=== PATIENT | female | born 1985 | race African-American/Black ===

== ENCOUNTER 2017-02-22 18:30 | Day surgery (SDC) | payer OTHER ==
[2017-02-22 19:26] VITALS: BP 124/86; TEMP 99.4; BMI 34.8
--- NOTE | 2017-02-22 21:18 | CON ---
DATE OF CONSULTATION: 02/22/2017 CHIEF COMPLAINT: Elevated blood pressures. PRIMARY PRESCHOOL ASSISTANT TEACHER: Dr. Grisel Sandoval. HISTORY OF PRESENT ILLNESS: The patient is a 31-year-old G4, P1 female with an intrauterine pregnan cy at 36 weeks and 4 days, who has a history of preeclampsia with previous . The patient r eports that she had taken her blood pressure at home and was noted to be in the 140 systolic and pro ceeded to go to a local pharmacy to repeat her blood pressure where her systolic pressures were in t he 150s after consulting with her primary care team. She was advised to come for evaluation here at the hospital. The patient denies any headaches, any shortness of breath, nausea, vomiting, any oth er complications with this thus far. She denies any contractions. PAST MEDICAL HISTORY: Noncontributory. PAST SURGICAL HISTORY: Noncontributory. ALLERGIES: No known drug allergies. MEDICATIONS: She is on iron and vitamins. OBSTETRIC HISTORY: She has had 1 spontaneous , 1 elective and 1 term delivery. OB LABS: RPR is nonreactive. Hepatitis B surface antigen is nonreactive, HIV is nonreactive. She is rubella immune, and gonorrhea and chlamydia are negative. Her one-hour Glucola was 114. Type an d screen is O positive and her GBS is negative. REVIEW OF SYSTEMS: Patient denies any recent illness, fever, fall, headache, chest pain, shortness of breath, any nausea, vomiting, diarrhea, constipation, any new rashes, hip problems, knee problems , muscle weakness, any vaginal bleeding, leakage of fluid, uterine contractions, any urinary urgency or frequency. PHYSICAL EXAMINATION: VITAL SIGNS: Blood pressures have ranged from 124-131 systolic to 83-88 diastolic. Over the course of 45 minutes, pulse has been in the 100s-110s, respiratory rate is 16, temperature 99.4. GENERAL: She appears to be in no acute distress. She is alert and oriented, and cooperative and pl easant to interact with. HEENT: Normocephalic, atraumatic. LUNGS: Clear to auscultation bilaterally. HEART: Regular rate and rhythm. ABDOMEN: Soft, gravid, nontender. EXTREMITIES: Nontender, nonedematous. heart tracing was performed for approximately 30 minut for evaluation. Baseline was noted to be in the 130s with moderate long-term variabili ty, positive accelerations, no decelerations. Irritability is noted on the monitor. ASSESSMENT AND PLAN: The patient is a 31-year-old G4, P1 female with an intrauterine at 3 6 weeks and 4 days, presenting with concerns for elevated blood pressures. We have not been able to reproduce elevated pressures here at the hospital at this time. She is at increased risk for pregn sathish related to hypertension given her previous history; however, no evidence that this is occurring at this time. The patient does have an appointment on with her primary OB, which she has been encouraged to keep. Term precautions have been given.
== END 2017-02-22 20:05 | disposition home or self-care (01) ==
LOC: L&D/OP 18:30
PROVIDERS: ATTEND Family Medicine
DX: O99.89 Other specified diseases and conditions complicating pregnancy, childbirth and the puerperium (principal); R03.0 Elevated blood-pressure reading, without diagnosis of hypertension; Z79.899 Other long term (current) drug therapy; Z3A.36 36 weeks gestation of pregnancy; Z87.59 Personal history of other complications of pregnancy, childbirth and the puerperium; Z87.891 Personal history of nicotine dependence

== ENCOUNTER 2017-03-09 09:08 | Inpatient (IN) | payer OTHER ==
[2017-03-09 09:53] VITALS: BMI 35.5
[2017-03-09] MEDS: Lactated Ringer's 1,000 ML IV SCH ×2 (10:21→15:03)
[2017-03-09] MEDS ORDERED: Ondansetron HCl/PF 4 MG/2 ML Vial IVP PRN ×3 (10:31→23:42)
[2017-03-09] MEDS ORDERED: Lidocaine 1% (PF) 30 ML VIAL SC PRN (10:31)
[2017-03-09] MEDS ORDERED: Carboprost 250 MCG/ML AMP IM PRN (10:31)
[2017-03-09] MEDS ORDERED: Diphenoxylate HCl/Atropine Tablet PO PRN (10:31)
[2017-03-09] MEDS ORDERED: HYDROcodone/Acetaminophen 5/325 mg Tablet PO PRN ×3 (10:31→23:42)
[2017-03-09] MEDS ORDERED: Promethazine HCl 25 MG/ML VIAL IM PRN ×2 (10:31→17:10)
[2017-03-09] MEDS ORDERED: LR / Pitocin 40 units/1000 ml 1,000 ML IV PRN (10:31)
[2017-03-09 10:43] LABS: Hematocrit 36.7 % (36.0-47.0); Mean Platelet Volume 6.7 fL (7.4-10.4); Red Blood Cell (RBC) Count 3.96 mill/uL (4.20-5.40); White Blood Cell (WBC) Count 9.1 thou/uL (4.8-10.8)
[2017-03-09] MEDS ORDERED: LR 500 ML/Oxytocin 10 units 500 ML IV SCH (10:45)
[2017-03-09] MEDS ORDERED: Lactated Ringer's 1,000 ML IV SCH (10:45)
[2017-03-09] MEDS ORDERED: Bupivacaine 0.25% 10 ML VIAL ONE (11:11)
[2017-03-09] MEDS ORDERED: Bupivacaine/Epinephrine 0.25% 30 ML VIAL ONE (11:11)
[2017-03-09] MEDS ORDERED: Fentanyl 4 mcg/Marc 0.1% Cadd 100 ML ONE (12:32)
[2017-03-09 13:54] LABS: ALT (SGPT) 12 U/L (8-55); AST (SGOT) 17 U/L (5-34); Alkaline Phosphatase 163 U/L (40-150); Anion Gap 14 mmol/L (10-20); BUN (Urea Nitrogen) 4 mg/dL (7.0-18.7); Bilirubin, Total 0.8 mg/dL (0.2-1.2); Calc. Creatinine Clearance 247 mL/min (70-130); Calcium 9.2 mg/dL (7.8-10.44); Carbon Dioxide 21 mmol/L (22-29); Chloride 106 mmol/L (98-107); Estimated GFR-MDRD Greater than 90; Protein, Total 6.5 g/dL (6.0-8.3)
[2017-03-09] MEDS ORDERED: Acetaminophen 325 MG TAB PO PRN ×2 (14:02→17:10)
[2017-03-09] MEDS ORDERED: ePHEDrine/0.9% NaCl/PF SYRINGE 50 mg/10 ml SLOW IVP PRN (17:10)
[2017-03-09] MEDS ORDERED: diphenhydrAMINE 50 MG/ML VIAL IVP PRN (17:10)
[2017-03-09] MEDS ORDERED: Lactated Ringer's 500 ML IV PRN (17:10)
[2017-03-09] MEDS ORDERED: Eucerin (Mineral Oil/Petrolatum,White) 30 gm Jar TOP PRN (17:10)
[2017-03-09] MEDS ORDERED: Naloxone HCl 0.4 mg/ml Vial IVP PRN ×2 (17:10)
[2017-03-09] MEDS ORDERED: Fentanyl 4mcg/Marcaine 0.1% Cassette 100 ML EPIDURAL SCH (17:15)
[2017-03-09] MEDS ORDERED: Communication Order-Pharmacy FS SCH (17:15)
[2017-03-09] MEDS ORDERED: FLU VACC QS2017-18 36 mo. & older 0.5 ML SYRINGE IM ONE (21:00)
[2017-03-09] MEDS ORDERED: Bisacodyl 10 MG SUPP PR PRN (23:42)
[2017-03-09] MEDS ORDERED: LR / Pitocin 40 units/1000 ml 1,000 ML IV SCH (23:42)
[2017-03-09] MEDS ORDERED: Lanolin Ointment 7 GM TUBE TOP PRN (23:42)
[2017-03-09] MEDS ORDERED: diphenhydrAMINE 25 MG CAP PO PRN (23:42)
[2017-03-09] MEDS ORDERED: Preparation H Ointment 28 GM TUBE PR PRN (23:42)
[2017-03-09] MEDS ORDERED: Milk Of Magnesia 30 ML UDCUP PO PRN (23:42)
[2017-03-09] MEDS ORDERED: Benzocaine/Menthol 20-0.5% 60 ML CAN TOP PRN (23:42)
[2017-03-09] MEDS ORDERED: traMADol HCl 50 MG TAB PO PRN (23:42)
[2017-03-10 00:04] LABS: Hematocrit 36.8 % (36.0-47.0)
[2017-03-10] MEDS: Docusate (Surfak) 240 MG CAP PO SCH ×3 (01:27→21:04)
[2017-03-10] MEDS: Acetaminophen/Codeine 30-300mg Tablet PO PRN ×2 (04:04→14:32)
[2017-03-10] MEDS: Ferrous Sulfate 325 MG TAB PO SCH ×2 (07:17→15:33)
--- NOTE | 2017-03-10 07:23 | PDOC.PP ---
Post Progress Note Post Day #: 1 PO intake tolerated: yes Flatus: yes Ambulation: yes Vital Signs (12 hours) Temp Pulse Resp BP BP Pulse Ox 03/10/17 04:00 98.4 F 88 18 137/84 03/10/17 00:40 97.9 F 93 20 154/79 H 03/09/17 23:31 98.7 F 101 H 20 97 03/09/17 23:30 98.7 F 101 H 20 165/87 H 97 03/09/17 20:08 98.5 F 108 H 20 Weight Weight 220 lb - Physical Examination General: NAD Cardiovascular: no m/r/g, RRR Respiratory: clear to auscultation bilaterally Abdominal: + bowel sounds, lochia, no distention, appropriately TTP Extremities: negative homans (B) Neurological: no gross focal deficits Psychiatric: A&Ox3, normal affect Result Diagrams: 03/09/17 23:50 03/09/17 10:26 Additional Labs: Post Labs Hep Bs Antigen Non-Reactive S/CO (NonReactive) 03/09/17 10:26 - Assessment/Plan no jones, begin labetalol 100 bid for chtn.
[2017-03-10] MEDS: Prenatal Vitamin 1 TAB PO SCH (09:30)
[2017-03-10] MEDS: Labetalol HCl 100 MG TAB PO SCH ×2 (09:30→21:03)
[2017-03-11 06:39] VITALS: BP 130/76
[2017-03-11] MEDS: Prenatal Vitamin 1 TAB PO SCH (08:10)
[2017-03-11] MEDS: Labetalol HCl 100 MG TAB PO SCH (08:10)
[2017-03-11] MEDS: Docusate (Surfak) 240 MG CAP PO SCH (08:10)
[2017-03-11] MEDS: Ferrous Sulfate 325 MG TAB PO SCH (08:12)
[2017-03-11 09:26] VITALS: TEMP 98.1
== END 2017-03-11 14:30 | disposition home or self-care (01) | DRG 774 ==
LOC: L&D 09:13 → 3SW 23:32
PROVIDERS: ADMIT Family Medicine; ATTEND Family Medicine
PROC: 10E0XZZ Delivery of Products of Conception, External Approach (ICD-10-PCS; principal; 2017-03-09)
PROC: 10907ZC Drainage of Amniotic Fluid, Therapeutic from Products of Conception, Via Natural or Artificial Opening (ICD-10-PCS; 2017-03-09)
PROC: 3E0P3VZ Introduction of Hormone into Female Reproductive, Percutaneous Approach (ICD-10-PCS; 2017-03-09)
DX: O13.4 Gestational [pregnancy-induced] hypertension without significant proteinuria, complicating childbirth (principal); O10.02 Pre-existing essential hypertension complicating childbirth; O69.81X0 Labor and delivery complicated by cord around neck, without compression, not applicable or unspecified; Z37.0 Single live birth; Z3A.38 38 weeks gestation of pregnancy
CPT/HCPCS: 36415; 80053; 85027; 86780; 87340; J0595; J2001; J7120; S0020